=== PATIENT | female | born 1985 | race Caucasian/White ===

== ENCOUNTER 2025-07-12 11:22 | Outpatient (CLI) | payer MEDICAID ==
--- NOTE | 2025-07-12 13:56 | ELECTROCARDIOGRAPH REPORT ---
[facility] Test Date: 2025-07-12 Test Time: 12:12:18 Pat Name: CHANG EVANS Department: PRE/OP CARDIOLOGY Patient ID: [facility]-[id number] Room: Gender: F [employer] Sr Strategy Manager: FINN : [id number] Requested By: TONI ZELAYA Order Number: [id number] Reading MD: Dr. Tamika Monterroso Measurements Intervals Adrian Rate: 84 P: 23 AK: 161 QRS: 96 QRSD: 107 T: -3 QT: 420 QTc: 497 Interpretive Statements Sinus rhythm Borderline right axis deviation Borderline repolarization abnormality Electronically Signed On 07-12-2025 15:28:[address] Tamika Monterroso Please click the below link to view image of tracing.
== END 2025-07-12 23:59 | disposition home or self-care (01) ==
LOC: RAD 11:22
PROVIDERS: ATTEND Physician Assistant
DX: F11.20 Opioid dependence, uncomplicated (principal)
CPT/HCPCS: 93005